=== PATIENT | female | born 1985 | race Two or more races ===

== ENCOUNTER → 2018-04-06 | Outpatient (CLI) | payer BC | END | disposition home or self-care (01) | LOC: LABWHC1 12:30 | PROVIDERS: ATTEND Obstetrics & Gynecology | DX: N92.6 Irregular menstruation, unspecified (principal) | CPT/HCPCS: 36415; 84702 ==

== ENCOUNTER → 2018-05-11 | Outpatient (CLI) | payer BC ==
[2018-05-11 12:56] LABS: HCT 38.7 % (34.0-46.0); HGB 13.2 gm/dL (11.4-16.0); MCH 30.9 pg (25.0-35.0); MCHC 34.1 g/dL (31.0-37.0); MCV 90.8 fL (80.0-100.0); Mean Platelet Volume 6.7; Platelet Count 246 k/uL (150-450); RBC 4.26 m/uL (3.80-5.40); RDW 13.1 % (11.5-15.5); WBC 9.5 k/uL (3.8-10.6)
[2018-05-11 21:12] LABS: HIV 1 AB Non-Reactive (Non-Reactive); HIV AB P24 Non-Reactive (Non-Reactive); HIV P24 AG Non-Reactive (Non-Reactive)
[2018-05-12 06:09] LABS: Toxoplasma Antibody (IgG) <3.0 IU/mL (<7.2); Toxoplasma Antibody (IgM) <3.0 AU/mL (<8.0)
== END | disposition home or self-care (01) ==
LOC: LABWHC1 12:25
PROVIDERS: ATTEND Obstetrics & Gynecology
DX: Z34.81 Encounter for supervision of other normal pregnancy, first trimester (principal)
CPT/HCPCS: 36415; 82565; 82947; 85027; 86762; 86777; 86778; 86780; 86850; 86900; 86901; 87340; 87390

== ENCOUNTER 2018-11-25 09:26 | Inpatient (IN) | payer BC ==
[2018-11-25] MEDS ORDERED: OXYTOCIN 30 UNITS/500 ML NS 30 UNIT in SALINE 1 500ML.BAG IV SCH (10:00)
[2018-11-25] MEDS: LACTATED RINGERS 1,000 ML IV SCH ×3 (10:20→17:29)
[2018-11-25] MEDS ORDERED: METHYLERGONOVINE 0.2 MG/ML 1 ML AMP IM PRN (11:33)
[2018-11-25] MEDS ORDERED: OXYTOCIN 10 UNIT/ML 1 ML VIAL IM PRN (11:33)
[2018-11-25] MEDS ORDERED: TERBUTALINE 1 MG/ML VIAL SQ PRN (11:33)
[2018-11-25] MEDS ORDERED: CARBOPROST TROMETHAMINE 250 MCG/ML 1 ML AMP IM PRN (11:33)
[2018-11-25] MEDS ORDERED: LIDOCAINE 0.5% (PF) 5 MG/ML (50 ML SDV) SQ PRN (11:33)
[2018-11-25] MEDS ORDERED: AMPICILLIN 2,000 MG in SODIUM CHLORIDE 0.9% 100 ML IVPB STA (11:42)
[2018-11-25 11:48] LABS: Basophils % (A) 0 %; Eosinophils # (A) 0.2 k/uL (0-0.7); Eosinophils % (A) 2 %; HCT 41.4 % (34.0-46.0); HGB 13.8 gm/dL (11.4-16.0); Lymphocytes # (A) 1.8 k/uL (1.0-4.8); Lymphocytes % (A) 17 %; MCH 29.5 pg (25.0-35.0); MCHC 33.2 g/dL (31.0-37.0); MCV 88.7 fL (80.0-100.0); Mean Platelet Volume 7.7; Monocytes # (A) 0.5 k/uL (0-1.0); Monocytes % (A) 5 %; Neutrophils % (A) 74 %; Platelet Count 266 k/uL (150-450); RBC 4.67 m/uL (3.80-5.40); RDW 15.2 % (11.5-15.5); WBC 10.8 k/uL (3.8-10.6)
[2018-11-25 11:56] VITALS: BMI 24.9
[2018-11-25] MEDS: AMPICILLIN 1,000 MG in SODIUM CHLORIDE 0.9% 50 ML IVPB SCH ×2 (15:52→20:15)
[2018-11-25] MEDS ORDERED: ROPIVACAINE 5MG/ML 20ML VIAL ONE (16:35)
[2018-11-25] MEDS ORDERED: SODIUM CHLORIDE 0.9% 100 ML BAG ONE (16:35)
[2018-11-25] MEDS ORDERED: fentaNYL (PF) 50 MCG/ML 5 ML AMP ONE (16:35)
[2018-11-25] MEDS ORDERED: WITCH HAZEL 1 EACH MED..PAD TOPICAL PRN (21:52)
[2018-11-25] MEDS ORDERED: diphenhydrAMINE 50 MG/ML 1 ML VIAL IVP PRN ×2 (21:52)
[2018-11-25] MEDS ORDERED: LANOLIN CREAM 5 GM TUBE TOPICAL PRN (21:52)
[2018-11-25] MEDS ORDERED: HYDROcodone/APAP 5-325MG 1 EACH TAB PO PRN (21:52)
[2018-11-25] MEDS ORDERED: diphenhydrAMINE 50 MG CAP PO PRN (21:52)
[2018-11-25] MEDS ORDERED: BENZOCAINE/MENTHOL SPRAY 1 GM/SPRAY AEROSOL TOPICAL PRN (21:52)
[2018-11-25] MEDS ORDERED: ACETAMINOPHEN TAB 325 MG TAB PO PRN (21:52)
[2018-11-25] MEDS ORDERED: SIMETHICONE 80 MG CHEWABLE PO PRN (21:52)
[2018-11-25] MEDS ORDERED: diphenhydrAMINE 25 MG CAP PO PRN (21:52)
[2018-11-25] MEDS ORDERED: ZOLPIDEM 5 MG TAB PO PRN (21:52)
[2018-11-25] MEDS ORDERED: HYDROCORTISONE 2.5% RECTAL CREAM 30 GM TUBE RECTAL PRN (21:52)
--- NOTE | 2018-11-25 21:55 | P.HPOB ---
History of Present Illness H&P Date: 11/25/18 Chief Complaint: Intrauterine at term: Spontaneous rupture membranes Iman is a 33 old at 38 weeks gestation who arrives complaining of spontaneous rupture membranes at approximately 2 AM. While she has a negative group B strep test she did have positive last and therefore we will start antibiotics especially in the face of her main once the near dilated and having did not in labor at has been 8 hours now. Pertinent labs O+ blood type Rh and it was negative and rubella was immune. Hepatitis surface antigen was nonreactive and RPR was nonreactive as was HIV. Her Precis course otherwise was unremarkable and she is feeling well at this time. She is currently dilated to 1-2 cm 80% effaced -3 station Degree 1 tracing is noted. Past Medical History Past Medical History: No Reported History History of Any Multi-Drug Resistant Organisms: None Reported Past Surgical History: No Surgical Hx Reported Additional Past Surgical History / Comment(s): Patient's had a ganglion cyst on the right hand removed and wisdom teeth extracted. Past Anesthesia/Blood Transfusion Reactions: No Reported Reaction Past Psychological History: No Psychological Hx Reported Smoking Status: Former smoker Past Alcohol Use History: None Reported Past Drug Use History: None Reported - Past Family History Father Family Medical History: Cancer, Diabetes Mellitus Additional Family Medical History / Comment(s): pancreatic cancer- demised Medications and Allergies Home Medications Medication Instructions Recorded Confirmed Type Pnv,Calcium 72/Iron/Folic Acid 1 tab PO DAILY 06/20/15 11/25/18 History [Pnv Plus Multivit Tab] Allergies Allergy/AdvReac Type Severity Reaction Status Date / Time No Known Allergies Allergy Verified 11/02/18 12:31 Exam Osteopathic Statement: *. No significant issues noted on an osteopathic structural exam other than those noted in the History and Physical/Consult. Vital Signs Temp Pulse Resp BP Pulse Ox 11/25/18 10:00 97.8 F 74 18 125/77 97 Intake and Output 11/25/18 11/25/18 11/25/18 06:59 14:59 22:59 Other: # Voids 1 Weight 76.204 kg - OBG Physical Exam Breast: both: normal (no masses) Abdomen: bowel sounds normal, no diffuse tenderness, no bruit present, no guarding noted, no hepatomegaly, no splenomegaly, no mass Vulva: both: normal Vagina: normal moisture, no discharge Cervix: no lesion, no discharge Uterus: normal size, normal contour Adnexa: both: normal Anus/Rectum: normal perianal skin, no rectal mass, no hemorrhoids, heme negative Results Result Diagrams: 11/25/18 10:20 Abnormal Lab Results - Last 24 Hours (Table) 11/25/18 Range/Units 10:20 WBC 10.8 H (3.8-10.6) k/uL Neutrophils # 8.0 H (1.3-7.7) k/uL
--- NOTE | 2018-11-25 21:56 | P.PROBDLV ---
Vaginal Delivery Note - . Vaginal Delivery Note: Patient progressed complete and pushed with spontaneous vaginal delivery of a viable female over secondary midline laceration and right labial laceration. Following delivery of the head a nuchal cord 1 was noted and baby was delivered through the nuchal cord with gentle downward upper traction followed by the delivery of the baby and mouth and nares being bulb suction. Baby was placed on mother's abdomen and umbilical cord was clamped cut and nursery personnel were able to immediately assume care. There were decelerations in the heart rate from baseline of 120s down to the 80s and 90s throughout the pushing process likely due to the nuchal cord. Baby's heart rate did return to baseline between contractions. O2 had been provided. Once baby was delivered placenta was then delivered intact and Pitocin was added to the IV. Secondary midline laceration was then repaired with 3-0 Vicryl in usual fashion following 1% Xylocaine for analgesia. Right labial laceration was also repaired with 3-0 Vicryl fine 1% Xylocaine for analgesia. scores were 8 and 9 at one and 5 minutes respectively and the weight was 8 lbs. 2 oz. Both mother and baby are currently stable following delivery.
[2018-11-25] MEDS ORDERED: OXYTOCIN 20 UNITS/1000 ML NS 1,000 ML IV SCH (22:00)
[2018-11-26] MEDS: IBUPROFEN 600 MG TAB PO PRN ×3 (04:22→19:26)
[2018-11-26] MEDS: SENNOSIDES-DOCUSATE SODIUM 1 EACH TAB PO SCH ×2 (09:00→19:27)
[2018-11-27] MEDS: IBUPROFEN 600 MG TAB PO PRN ×3 (05:39→19:42)
[2018-11-27] MEDS: SENNOSIDES-DOCUSATE SODIUM 1 EACH TAB PO SCH ×2 (08:00→22:45)
--- NOTE | 2018-11-27 10:10 | P.PNOBGVD ---
Subjective - Subjective Principal diagnosis: day 1 Interval history: Iman is seen and evaluated day 1. Overall she is doing well. Involuting, voiding and tolerating her diet. Due to prolonged rupture membranes we're keeping the baby for another 24 hours. All questions are answered for her and she is stable at this time. dictation was done late but she was seen day 1. Patient reports: Reports appetite normal, Reports voiding normally, Reports pain well controlled, Reports ambulating normally : doing well Objective - Latest Vital Signs Latest vital signs: Vital Signs Temp Pulse Resp BP 11/27/18 00:00 98.2 F 68 16 104/60 11/26/18 15:24 97.9 F 65 18 115/69
--- NOTE | 2018-11-27 10:11 | P.DS ---
Providers Date of admission: 11/25/18 10:19 Expected date of discharge: 11/27/18 Attending physician: Keith Gupta Primary care physician: Stated None Hospital Course: Iman is doing very well day 2. She is ambulating, voiding and tolerating her diet. She voices no complaints and is stable for discharge at this time. Her vital signs are stable and she is afebrile. Heart regular, lungs clear, extremities without pain. Abdomen soft and nontender. Positive bowel sounds are noted. Abdomen is soft uterus is firm and lochia is reported to be light. Assessment post day 2 plan discharged home. Follow-up with Dr. Ocampo in 6 weeks. Prescription for a breast pump and Motrin are provided. Discharge instructions again thoroughly reviewed and all questions were answered for her prior to her discharge. Patient Condition at Discharge: Good Plan - Discharge Summary New Discharge Prescriptions: New Ibuprofen [Motrin] 600 mg PO Q6HR PRN #30 tab PRN Reason: Pain No Action Pnv,Calcium 72/Iron/Folic Acid [Pnv Plus Multivit Tab] 1 tab PO DAILY Discharge Medication List Pnv,Calcium 72/Iron/Folic Acid [Pnv Plus Multivit Tab] 1 tab PO DAILY 06/20/15 [History] Ibuprofen [Motrin] 600 mg PO Q6HR PRN #30 tab 11/27/18 [Rx] Follow up Appointment(s)/Referral(s): Keith Gupta MD [STAFF PHYSICIAN] - 1 Week Activity/Diet/Wound Care/Special Instructions: No heavy lifting, limit stairs and driving, and pelvic rest. If any high temperatures, heavy bleeding, or severe pain call my office Discharge Disposition: HOME SELF-CARE
[2018-11-27 10:18] VITALS: RESP 18
[2018-11-27 18:13] VITALS: BP 114/63; PULSE 77; TEMP 97.8
== END 2018-11-27 20:45 | disposition home or self-care (01) | DRG 807 ==
LOC: FBPOP 09:26 → 4FBP 10:19
PROVIDERS: ADMIT Obstetrics & Gynecology; ATTEND Obstetrics & Gynecology
PROC: 10E0XZZ Delivery of Products of Conception, External Approach (ICD-10-PCS; principal; 2018-11-25)
PROC: 0HQ9XZZ Repair Perineum Skin, External Approach (ICD-10-PCS; 2018-11-25)
PROC: 00HU33Z Insertion of Infusion Device into Spinal Canal, Percutaneous Approach (ICD-10-PCS; 2018-11-25)
PROC: 3E0R3BZ Introduction of Anesthetic Agent into Spinal Canal, Percutaneous Approach (ICD-10-PCS; 2018-11-25)
DX: O42.92 Full-term premature rupture of membranes, unspecified as to length of time between rupture and onset of labor (principal); Z37.0 Single live birth; O69.81X0 Labor and delivery complicated by cord around neck, without compression, not applicable or unspecified; O76 Abnormality in fetal heart rate and rhythm complicating labor and delivery; O70.0 First degree perineal laceration during delivery; O90.1 Disruption of perineal obstetric wound; Z3A.38 38 weeks gestation of pregnancy; Z87.891 Personal history of nicotine dependence; Z83.3 Family history of diabetes mellitus; Z80.0 Family history of malignant neoplasm of digestive organs
CPT/HCPCS: 85025; 86850; 86900; 86901

== ENCOUNTER → 2021-10-07 | Outpatient (CLI) | payer BC ==
--- NOTE | 2021-10-07 18:35 | MR ---
EXAMINATION TYPE: MR lumbar spine wo con DATE OF EXAM: 10/07/2021 COMPARISON: None HISTORY: 36-year-old female lumbar pain, Low back pain that radiates into right buttock and down leg. TECHNIQUE: Multiplanar, multisequence images of the lumbar spine were acquired without IV contrast. FINDINGS: Vertebral body heights are preserved and alignment is maintained. Mild to moderate degenerative disc disease L4-L5 and L5-S1 with desiccated bulging discs. There is po sterior annular fissure at L5-S1. Additional mild ligamentum flavum thickening particularly L4-L5. Mild facet degenerative change lower lumbar spine. Conus medullaris is normal. There is some edematous Modic type I endplate change towards the right at L4-L5. No prevertebral paravertebral soft tissue body. At T12-L1, no spinal canal or foraminal stenosis. At L1-L2, no spinal canal or neuroforaminal stenosis. At L2-L3, no spinal canal or neuroforaminal stenosis. At L3-L4, no spinal canal or foraminal stenosis. At L4-L5, there is disc bulge eccentric towards the right. This abuts the traversing right L5 nerve r oot. There is mild circumferential narrowing of the spinal canal but no significant spinal canal sten osis. Along with mild facet degenerative change, changes result in mild right neuroforaminal stenosis . At L5-S1, diffuse disc bulge with posterior annular fissure and mild facet arthropathy. No significan t spinal canal stenosis. Minimal bilateral inferior foraminal narrowing on both sides. IMPRESSION: 1. Mild to moderate degenerative disc disease at L4-L5 and L5-S1 along with mild facet arthropathy. T here is associated posterior annular fissure at L5-S1. Also, associated edematous Modic type I endpla te change towards the right at L4-L5. 2. Disc bulge at L4-L5 is eccentric towards the right and encroaches onto the lateral recess abutting the traversing right L5 nerve root. Correlate for any corresponding radicular symptoms. Overall mild right neuroforaminal stenosis at this level. 3. No large focal disc herniation or significant spinal canal stenosis. 4. Minimal bilateral inferior neural foraminal narrowing on both sides at L5-S1.
== END | disposition home or self-care (01) ==
LOC: RADMRIMAIN 10:56
PROVIDERS: ATTEND Orthopaedic Surgery
DX: M51.27 Other intervertebral disc displacement, lumbosacral region (principal); M47.816 Spondylosis without myelopathy or radiculopathy, lumbar region; M99.73 Connective tissue and disc stenosis of intervertebral foramina of lumbar region; M48.061 Spinal stenosis, lumbar region without neurogenic claudication
CPT/HCPCS: 72148

== ENCOUNTER → 2021-12-01 | Outpatient (CLI) | payer BC ==
[2021-12-01 13:39] VITALS: BP 116/70; PULSE 67; RESP 18; TEMP 98.3
--- NOTE | 2021-12-01 15:07 | P.PAINPG ---
PQRS Measure Charge Sheet Comment: HISTORY OF PRESENT ILLNESS: 36 yr old female as a referral from [facility] for severe and chronic LBP secondary to for evaluation. States her pain level is 2/10 in intensity, localized in the R lower aspect of her lumbar spine x 1 year, w radiation of tingling to RLE. Pain escalates as high as 7/10 in intensity when provoked with walking/standing for periods of 20 min or more or w weight bearing activity. Pain is relieved with heat, ice, medications (Ibuprofen), topicals, PT for 5 weeks 3 mo ago, chiropractic treatments weekly w last visit last month, repositioning and rest. PMH: No Reported History PSH: R Hand Ganglion Cystectomy SH: Former tobacco user, No ETOH use, No illicit drug use. FH: Father- Pancreatic CA/ NIDDM. All: NKDA Meds: See list REVIEW OF ORGAN SYSTEMS: CONSTITUTIONAL: No fevers or chills. No recent weight loss. NEUROLOGICAL: + numbness and tingling along the distal extremities. No seizure disorders or headaches. MUSCULOSKELETAL: + pain PSYCHIATRIC: Denies current depression or suicidal thoughts. Physical Examinations : Constitutional : Cooperative , not in acute distress . Neurologic : Cranial nerve II to XII intact. No focal neurological deficits. Psychiatric : alert & oriented x 3. Matching mood & appropriate affect. Judgment & insight intact. Musculoskeletal : Cervical Spine Motor strength in the deltoid and biceps: Normal right side. Normal Left side Motor strength biceps and the wrist extensors: Normal right side . Normal left side Motor strength in the triceps muscle: Normal right side. Normal left side Deep tendon reflexes: Normal at the biceps. Normal at Brachioradialis. Normal at triceps Vertebral body tenderness to deep palpation over Cervical facet loading test: positive bilaterally Spurling test: positive bilaterally Neck distraction test: positive bilaterally Deneen sign: positive bilaterally Lumbar spine Motor strength lower extremities ,thigh and legs 5/5 Right side , 5/5 Left side Deep tendon reflexes : Normal Knee Jerk. Normal Ankle Jerk Vertebral body tenderness over L4 Lumbar facet Loading Test: positive Right / positive Left Range of motion of the lumbar spine Flexion 30 degrees, extension 10 degrees Straight Leg Raise test: Left/ Right positive at degree Mechelle test: positive right / positive left. Severe tenderness over the Sacroiliac joint on the Right / Left sides Gaenslen test: positive bilaterally Seated flexion test: positive bilaterally. Sacral spine : Severe tenderness over the Sacroiliac joint: right side / left side Range of motion: Flexion of the lumbar spine <60 degrees Range of motion: Extension of the lumbar spine <20 degrees Gaenslen's Test positive Timbo's Test positive Mechelle test: positive right side / left side Thigh Thrust Test Sacral Thrust Test Imaging: MRI without contrast of the lumbar spine from 10/07/21 reviewed Assessment/ Plan : Lumbar disc bulge Recommendation of LESI L4-L5. May need a series of injections, up to 3 within a 6 mo period, for optimal pain relief. Risks, benefits of procedure discussed and patient verbalized understanding. Denies aspirin or anti- coagulant use or medical history of diabetes. Protocol for discontinuation/ continuation of medications mary procedure discussed. All questions answered. I have spent greater than 30 minutes on patient care today. Dr Sena was available by phone for the evaluation of this patient. The time was used to review the medical records including relevant urine studies and Prescription history (MAPs), review of the available imaging, evaluation and examination of the patient, coordination of care with the medical staff and if applicable referring physicians, as well as creation of the medical record PQRS Narrative: Smoking Status Former smoker Home Medications: Ambulatory Orders Pnv,Calcium 72/Iron/Folic Acid [Pnv Plus Multivit Tab] 1 tab PO DAILY 06/20/15 Ibuprofen [Motrin] 600 mg PO Q6HR PRN #30 tab 11/27/18 Controlled Substance Measures - Controlled Substance Measures Is patient prescribed a controlled substance at discharge?: No
== END ==
LOC: PNWHC3 10:42
PROVIDERS: ATTEND Specialist
DX: M51.26 Other intervertebral disc displacement, lumbar region (principal); Z87.891 Personal history of nicotine dependence
CPT/HCPCS: 99211

== ENCOUNTER 2021-12-30 12:35 | Day surgery (SDC) | payer BC ==
[2021-12-30] MEDS ORDERED: LIDOCAINE 1% (10MG/ML) FOR IV START INTRADERMA PRN (12:52)
[2021-12-30] MEDS ORDERED: LACTATED RINGERS 1,000 ML IV SCH (12:52)
[2021-12-30 12:59] VITALS: TEMP 97.7
[2021-12-30] MEDS ORDERED: IOPAMIDOL M200 10 ML VIAL ONE (13:35)
[2021-12-30] MEDS ORDERED: methylPREDNISolone ACETATE 80 MG/ML 1 ML VIAL ONE (13:35)
--- NOTE | 2021-12-30 13:43 | P.PCN ---
Date of Procedure: 12/30/21 Procedure(s) Performed: PREOPERATIVE DIAGNOSIS: 1- Lumbar Degenerative Disc Diseases 2-Lumbar radiculopathy POSTOPERATIVE DIAGNOSIS: Same as preop diagnosis. PROCEDURE 1. Lumbar epidural steroid injection under fluoroscopic guidance at the L4-5 level. (Fluoroscopy imaging was available in radiology department) 2. Lumbar epidurogram. ANESTHESIA: Local anesthesia with lidocaine 1% 3 mL only EBL: Minimal PROCEDURE INDICATION: The patient with low back pain and radiculitis symptoms unresponsive to conservative treatment. Fluoroscopy was used to optimize visualization of the needle placement and to maximize safety. PROCEDURE DESCRIPTION / TECHNIQUE: The patient was seen and identified in the preoperative area. Risks, benefits, complications including but not limited to infections ,bleeding ,allergic reaction to the medications ,nerve damage and not complete pain releife , and alternatives were discussed with the patient. The patient agreed to proceed with the procedure and signed the consent , and vital signs were stable. Patient was taken to the OR and time out was completed. The patient was placed in the prone position on procedure table and a pillow was placed under the abdomen to reduce lumbar lordosis. The lumbosacral area was prepped and draped in the usual sterile fashion.ere closely monitored during the procedure. Vital signs was monitered during the entire procedure. Using anterior-posterior fluoroscopy, the L4-5 interlaminar space was identified and the skin over this site was marked and then infiltrated with 1% lidocaine subcutaneously. Subsequently, a 20-gauge Tuohy epidural needle was inserted and advanced toward the epidural space using the ``Loss of resistance technique and guided by AP and lateral fluoroscopy. The correct needle position in the epidural space was verified with the injection of 2 mL of the water soluble contrast dye Isovue 200 contrast and observing an excellent epidurogram with the epidural spread of the dye, after negative aspiration for blood and CSF and in the absence of paresthesias. Again after negative aspiration, a 6 ml mixture containing 80 mg of Depo-medrol , and 2 ml of preservative free Normal Saline, and 2 ml of preservative free lidocaine 1% solution was injected and a washout of epidurogram was seen. Needle was withdrawn intact, skin was cleansed, and bandages were applied. COMPLICATIONS: None DISPOSITION / PLANS: The patient was placed in a supine position and transferred to the recovery area in a stable condition for observation. There was no evidence of lower extremity motor or sensory deficit after the procedure. Patient was discharged from the recovery room after meeting discharge criteria. Home discharge instructions were given to the patient by the staff. The patient was reexamined prior to discharge. The patient will schedule a follow up in the clinic in 2-4 weeks.
[2021-12-30 13:52] VITALS: RESP 20
--- NOTE | 2021-12-30 13:54 | FL ---
Intraoperative/procedural fluoroscopic services were provided for lumbar epidural injection. Total fl uoroscopy time is 4 seconds with a total of 1 submitted image to PACS. Please see the operative note for further details.
[2021-12-30 14:06] VITALS: BP 122/72; PULSE 72
== END 2021-12-30 14:08 | disposition home or self-care (01) ==
LOC: ORPAIN 12:35
PROVIDERS: ATTEND Specialist
DX: M51.16 Intervertebral disc disorders with radiculopathy, lumbar region (principal)
CPT/HCPCS: 81025; 62323; J1040; Q9966

== ENCOUNTER 2022-04-02 12:56 | Day surgery (SDC) | payer BC ==
[2022-03-31 10:13] VITALS: BMI 20.5
[2022-04-02] MEDS ORDERED: LIDOCAINE 1% (10MG/ML) FOR IV START INTRADERMA PRN (13:11)
[2022-04-02] MEDS ORDERED: LACTATED RINGERS 1,000 ML IV SCH (13:11)
[2022-04-02 13:18] VITALS: RESP 18; TEMP 96.9
[2022-04-02] MEDS ORDERED: IOPAMIDOL M200 10 ML VIAL ONE (13:48)
[2022-04-02] MEDS ORDERED: methylPREDNISolone ACETATE 80 MG/ML 1 ML VIAL ONE (13:48)
--- NOTE | 2022-04-02 14:03 | P.PCN ---
Date of Procedure: 04/02/22 Procedure(s) Performed: PREOPERATIVE DIAGNOSIS: 1- Lumbar Degenerative Disc Diseases 2-Lumbar radiculopathy POSTOPERATIVE DIAGNOSIS: Same as preop diagnosis. PROCEDURE 1. Lumbar epidural steroid injection under fluoroscopic guidance at the L4-5 level. (Fluoroscopy imaging was available in radiology department) 2. Lumbar epidurogram. ANESTHESIA: Local anesthesia with lidocaine 1% 3 mL only EBL: Minimal PROCEDURE INDICATION: The patient with low back pain and radiculitis symptoms unresponsive to conservative treatment. Fluoroscopy was used to optimize visualization of the needle placement and to maximize safety. PROCEDURE DESCRIPTION / TECHNIQUE: The patient was seen and identified in the preoperative area. Risks, benefits, complications including but not limited to infections ,bleeding ,allergic reaction to the medications ,nerve damage and not complete pain releife , and alternatives were discussed with the patient. The patient agreed to proceed with the procedure and signed the consent , and vital signs were stable. Patient was taken to the OR and time out was completed. The patient was placed in the prone position on procedure table and a pillow was placed under the abdomen to reduce lumbar lordosis. The lumbosacral area was prepped and draped in the usual sterile fashion.ere closely monitored during the procedure. Vital signs was monitered during the entire procedure. Using anterior-posterior fluoroscopy, the L4-5 interlaminar space was identified and the skin over this site was marked and then infiltrated with 1% lidocaine subcutaneously. Subsequently, a 20-gauge Tuohy epidural needle was inserted and advanced toward the epidural space using the ``Loss of resistance technique and guided by AP and lateral fluoroscopy. The correct needle position in the epidural space was verified with the injection of 2 mL of the water soluble contrast dye Isovue 200 contrast and observing an excellent epidurogram with the epidural spread of the dye, after negative aspiration for blood and CSF and in the absence of paresthesias. Again after negative aspiration, a 6 ml mixture containing 80 mg of Depo-medrol , and 2 ml of preservative free Normal Saline, and 2 ml of preservative free lidocaine 1% solution was injected and a washout of epidurogram was seen. Needle was withdrawn intact, skin was cleansed, and bandages were applied. COMPLICATIONS: None DISPOSITION / PLANS: The patient was placed in a supine position and transferred to the recovery area in a stable condition for observation. There was no evidence of lower extremity motor or sensory deficit after the procedure. Patient was discharged from the recovery room after meeting discharge criteria. Home discharge instructions were given to the patient by the staff. The patient was reexamined prior to discharge. The patient will schedule a follow up in the clinic in 2-4 weeks.
[2022-04-02] MEDS ORDERED: IV FLUID CONTINUATION 1,000 ML IV ONE (14:05)
[2022-04-02 14:11] VITALS: BP 149/78; PULSE 63
--- NOTE | 2022-04-02 16:47 | FL ---
EXAMINATION TYPE: FL guided pain mgmt statistic DATE OF EXAM: 04/02/2022 FLUOROSCOPY Fluoroscopy time of 4 seconds was used during lumbar epidural steroid injection. 1 image/s document/ s the procedure.
== END 2022-04-02 14:20 | disposition home or self-care (01) ==
LOC: ORPAIN 12:56
PROVIDERS: ATTEND Specialist
DX: M51.16 Intervertebral disc disorders with radiculopathy, lumbar region (principal)
CPT/HCPCS: 81025; 62323; J1040; Q9966

== ENCOUNTER → 2022-06-04 | Outpatient (CLI) | payer BC ==
[2022-06-04 09:10] VITALS: BP 120/82; PULSE 84; RESP 18; TEMP 97.9
--- NOTE | 2022-06-04 14:58 | P.PAINPG ---
PQRS Measure Charge Sheet Comment: A 37 yr old male with a history of severe and chronic LBP x 2 yrs (due to a volleyball accident, possibly) secondary to lumbar DDD and spondylosis with facet arthropathy without myelopathy presents today for evaluation s/p R paramedial YUNIOR L4-L5. Pt states she experienced 0 % pain relief x 2 mo s/p procedure. Pain level is provoked at 8/10 in intensity, constant, localized in the R lumbar spine, throbbing, achy in character w tightness towards the R calf. Pain is provoked by staying in 1 position (sitting, standing, laying) for periods of 30 min or more. Pain is alleviated with PT x 5 wks in 2021, chiropractic treatments as needed, meds (Flexeril, Naproxen), topicals, repositoning and rest. Interventional pain procedures completed include YUNIOR L4-L5 x2 Patient is currently on Flexeril, Naproxen Patient denies any side effects of the medication(s), denies excessive drowsiness or sleepiness, denies suicidal ideation and reports that the current pain medication is helping to control the pain and improve activities of daily living. Patient denies any motor or sensory deficits. Patient denies any fever or night sweats, denies any change in the bowel movements or urination. Physical Examination: -Constitutional: Cooperative. Not in acute distress . - Neurologic: Cranial nerve II to XII intact. No focal neurological deficits. - Psychatric: Alert & oriented x 3. Matching mood & appropriate affect. Judgment and insight intact. - Musculoskeletal: Cervical spine: Muscle bulk/ tone/ strength in the bilateral upper extremities normal Vertebral body tenderness to palpation over Spurling test positive Distraction test positive Facet loading test positive Thoracic spine Muscle bulk / tone/ strength in the bilateral paraspinal muscles normal Vertebral body tender to palpation over Facet loading test positive Lumbar spine: Motor bulk/ tone/ strength lower extremities , thigh and legs : 5/5 Deep tendon reflexes : Normal Knee Jerk. Normal Ankle Jerk . Vertebral body tenderness to palpation over Lumbar Facet Loading Test positive L4 Straight Leg Raise: positive at 30 degrees right side/ left side Gaenslen's Test positive Sacral spine : Severe tenderness over the Sacroiliac joint: right side / left side Range of motion: Flexion of the lumbar spine <60 degrees Range of motion: Extension of the lumbar spine <20 degrees Gaenslen's Test positive Mechelle test: positive right side / left side Thigh Thrust Test Sacral Thrust Test Assessment and plan: Chronic LBP secondary to lumbar DDD, spondylosis with facet arthropathy without myelopathy Recommendation of R TFESI L4-L5. May need a series of injections, up to 4 within a 12 mo period, for optimal pain relief. Risks, benefits of procedure discussed and pt verbalized understanding. Admits anticoagulant use or medical history of diabetes. Protocol for discontinuation/ continuation of medications mary procedure discussed. [place] 5/325mg #18 NR. Use, side effects and adverse reactions discussed. Safe storage discussed and patient verbalized understanding. All patient questions answered I have spent less than 30 minutes on patient care today. Dr Sena was available by phone for the evaluation of this patient. The time was used to review the medical records including relevant urine studies and Prescription history (MAPs), review of the available imaging, evaluation and examination of the patient, coordination of care with the medical staff and if applicable referring physicians, as well as creation of the medical record - Pain Location Bilateral Lower Back Non-Pharmacological Interventions: Chiropractic Treatment, Heat, Ice, Position/R eposition Pharmacological Interventions: Epidural, PRN Medication, Topical Medication PQRS Narrative: Smoking Status Former smoker Hx Alcohol Use (MH) Yes: 2-3 EVERY 3 DAYS Home Medications: Ambulatory Orders norethindrone-e.estradioL-iron [Fawn Fe 1.5-30 Tablet] 1 tab PO DAILY 12/30/21 Controlled Substance Measures - Controlled Substance Measures Is patient prescribed a controlled substance at discharge?: Yes When asked, does pt state using other controlled substances?: No If prescribed controlled substance>3 days was MAPS reviewed?: Prescribed <3 Days If Rx opioid, was Start Talking consent form obtained?: Yes If opioid is for acute pain is fill amount 7 days or less?: Yes Was information provided regarding opioid addiction?: Yes
== END ==
LOC: PNWHC3 08:39
PROVIDERS: ATTEND Specialist
DX: M47.816 Spondylosis without myelopathy or radiculopathy, lumbar region (principal); M51.36 Other intervertebral disc degeneration, lumbar region; G89.29 Other chronic pain; Z87.891 Personal history of nicotine dependence
CPT/HCPCS: 99211

== ENCOUNTER 2022-07-14 09:20 | Day surgery (SDC) | payer BC ==
[2022-07-08 11:20] VITALS: BMI 19.8
[2022-07-14 09:49] VITALS: TEMP 97.7
[2022-07-14] MEDS ORDERED: IOPAMIDOL M200 10 ML VIAL ONE (10:17)
[2022-07-14] MEDS ORDERED: methylPREDNISolone ACETATE 80 MG/ML 1 ML VIAL ONE (10:17)
--- NOTE | 2022-07-14 10:29 | P.PCN ---
Date of Procedure: 07/14/22 Procedure(s) Performed: PREOPERATIVE DIAGNOSIS: 1-Lumbar radiculopathy . 2-lumbar degenerative disc disease. 3-lumbar spondylosis with lumbar facet arthropathy POSTOPERATIVE DIAGNOSIS: Same as preoperative diagnoses. PROCEDURE 1. Transforaminal epidural steroid injection under fluoroscopic guidance at right L4-5 level. (Fluoroscopy images stored on file in the radiology Department ) 2. Lumbar epidurogram . ANESTHESIA: Local with 1% lidocaine 3 ml only . EBL: Minimal PROCEDURE INDICATION: The patient with low back pain and radiculopathy symptoms unresponsive to conservative treatment. PROCEDURE DESCRIPTION / TECHNIQUE: The patient was seen and identified in the preoperative area. Risks, benefits, complications, and alternatives were discussed with the patient. The patient agreed to proceed with the procedure and signed the consent. IV was started, and vital signs were stable. Patient was taken to the OR and time out was completed. The patient was placed in the prone position on procedure table and a pillow was placed under the abdomen to reduce lumbar lordosis. The lumbosacral area was prepped and draped in the usual sterile fashion. Critical pause was taken. Vital signs were closely monitored during the procedure. Using oblique fluoroscopy, the chin of the `MelKarel dog at Right L4-5 level was identified, and the skin and deeper tissues just below was localized with 1% lidocaine. Subsequently, a 22-gauge 3.5-inch spinal needle was advanced under a tunneled view fluoroscopic guidance just underneath the chin of the `Davontey dog at the right L4-5 Under lateral fluoroscopy, the needle was then advanced to the posterior border of the interforaminal space. After negative aspiration of CSF and blood and with no paresthesias, 1 mL Isovue 200 contrast dye was injected excellent epidurogram and outlining of the nerve root Subsequently, 3 mL of block solution containing 80 mg Depo-Medrol and 2 mL of 0.9% normal saline PF was injected. Needle was removed . At the end of the procedure, skin was cleansed, and bandages were applied. COMPLICATIONS:none DISPOSITION / PLANS: The patient was placed in a supine position and transferred to the recovery area in a stable condition for observation. There was no evidence of lower extremity motor or sensory deficit after the procedure. Patient was discharged from the recovery room after meeting discharge criteria. Home discharge instructions were given to the patient by the staff. The patient was reexamined prior to discharge.
--- NOTE | 2022-07-14 10:39 | FL ---
Intraoperative/procedural fluoroscopic services were provided for right transforaminal epidural injec tion. Total fluoroscopy time is 6 seconds with a total of 1 submitted image to PACS. Total DAP 0.0058 1. Please see the operative note for further details.
[2022-07-14 10:56] VITALS: BP 106/72; PULSE 74; RESP 16
== END 2022-07-14 10:56 | disposition home or self-care (01) ==
LOC: ORPAIN 09:20
PROVIDERS: ATTEND Specialist
DX: M51.16 Intervertebral disc disorders with radiculopathy, lumbar region (principal); M47.26 Other spondylosis with radiculopathy, lumbar region; Z88.0 Allergy status to penicillin
CPT/HCPCS: 81025; 64483; J1040; Q9966

== ENCOUNTER → 2022-08-05 | Outpatient (CLI) | payer BC ==
--- NOTE | 2022-08-05 10:30 | P.PN ---
Subjective Progress Note Date: 08/05/22 This is a 37-year-old lady with history of chronic lower back pain with radiation to the right leg down to the right ankle with occasional numbness and tingling in the right leg. The patient had transforaminal epidural steroid injection at the L4 5 level or 3 weeks ago which gave her good pain relief however the improvement has been getting worse over time. The most intense pain is in the right lower back area around her sacroiliac joint. The patient works at [employer] and she is on her feet for long intervals. Patient denies new-onset weakness, bowel/bladder incontinence, or any other signs or symptoms of cauda equina syndrome. There are no signs of acute intoxication, and no indications of medication diversion or overuse. In addition to above, 13-point review of systems is also negative for chest pain, shortness of breath, changes in vision, changes in hearing, new onset weak ness, abdominal pain, diarrhea, extreme fatigue, malaise, fever, skin changes, homicidal or suicidal ideation, or bowel or bladder incontinence. Vital Signs: Reviewed in EMR Gen: AAOx3, NAD HEENT: PERRLA,hearing grossly normal Pulm: resp unlabored Neck: supple, trachea midline Neuro exam of the lower extremities: Normal muscle strength and deep tendon reflexes Straight leg raising test: Mildly positive on the right side Timbo's test: Negative on the right side Range of motion of the lumbar spine: Facet loading test: Tenderness in the paravertebral musculature: + Significant tenderness around the right sacroiliac joint Neuro: CN II-XII grossly intact, Imaging: Reviewed in EMR/chart Assessment: Right lumbar radiculopathy Right sacroiliitis Number spondylosis without myelopathy Plan: 1. Explanation: When patients on opioids, opioid and psychological risk scores were reviewed. Diagnoses, prognoses, and multiple treatment options including but not limited to physical therapy, interventional therapies, adjuvant medical therapies, narcotic medication therapies, and surgery were discussed with the patient and all questions were answered to the patient's satisfaction. 2. Opioid agreement:When patients are prescribed opoids through our clinic, opioid agreement is signed with the patient and the patient is warned not to use opioids while driving or before driving and not to combine opioids with benzodiazepines or alcohol. 3. Counseling: When patient is smoking or obese, the patient was counseled extensively on SMOKING CESSATION, BODY MASS INDEX, EXERCISE. Specifically, the patient was instructed regarding the importance of smoking cessation, obesity, and exercise in the context of both chronic pain and overall health. 4. Procedures: None for now 5. Consultations: None 6. Investigations: None 7. Medications: None prescribed 8. Disposition: The patient will try physical therapy and we'll see her on an as-needed basis. 9. Maps were reviewed and were appropriate. PQRS measures: 1-Patient's medications are documented in the chart. 2-Tobacco use is negative, counseling given 3-Patient has had a pneumococcal vaccine. 4-Advanced care planning discussed, patient unable to give 5-Opioid contract signed with the patient. 6-Pain positive, follow-up visit or procedure scheduled 7-Patient's blood pressure measured and documented . The patient will follow up with his primary care physician. 8-Patient's weight was measured. Patient instructed to follow up with PCP. 9-Patient WAS NOT identified as an unhealthy alcohol user.
[2022-08-05 10:45] VITALS: BP 122/73; PULSE 72; RESP 18; TEMP 98.3
== END ==
LOC: PNWHC3 09:04
PROVIDERS: ATTEND Anesthesiology
DX: M47.26 Other spondylosis with radiculopathy, lumbar region (principal); M46.1 Sacroiliitis, not elsewhere classified; Z87.891 Personal history of nicotine dependence
CPT/HCPCS: 99211

== ENCOUNTER 2022-09-09 10:59 | Emergency (ER) | payer BC ==
[2022-09-09 11:05] VITALS: BP 123/76; PULSE 83; RESP 16; TEMP 97.4
[2022-09-09] MEDS ORDERED: DEXAMETHASONE SOD PHOSPHATE 10 MG/ML 1 ML VIAL IM STA (11:24)
[2022-09-09] MEDS ORDERED: MORPHINE SULFATE 4 MG/ML SYRINGE IM STA (11:25)
--- NOTE | 2022-09-09 11:31 | ED ---
Back Pain HPI - General Chief Complaint: Back Pain/Injury Stated Complaint: Back issues/pain Time Seen by Provider: 09/09/22 11:13 Source: patient, RN notes reviewed, old records reviewed Limitations: no limitations - History of Present Illness Initial Comments: This is a nontoxic-appearing 37-year-old female presenting with complaints of low back pain for the past 2 days. Patient states she got up and felt a pop in her lower back, low right side. States that she has pain on the right side that goes down her right leg. She does have history of chronic back pain and this is similar pain. Has seen pain management and had epidural injections which only provided relief for a couple of months. She has also seen Dr. Sandoval in the past. Denies any bowel or bladder incontinence. No fevers. No trauma. Was hoping to have a repeat MRI states her last one was over a year ago. MD Complaint: back pain -: days(s) (2) Similar Symptoms Previously: Yes Severity scale (1-10): 10 Consistency: constant Improves With: none Worsens With: walking Associated Symptoms: denies other symptoms - Related Data Home Medications Medication Instructions Recorded Confirmed Cyclobenzaprine [Flexeril] 10 mg PO HS 07/08/22 07/14/22 Gabapentin [Neurontin] 300 mg PO TID 07/08/22 07/14/22 Naproxen [Naprosyn] 500 mg PO DAILY 07/08/22 07/14/22 Previous Rx's Medication Instructions Recorded Lidocaine 5% Patch [Lidoderm] 1 patch TOPICAL DAILY 14 Days #14 09/09/22 patch Allergies Allergy/AdvReac Type Severity Reaction Status Date / Time No Known Allergies Allergy Verified 09/09/22 11:05 Review of Systems ROS Statement: Those systems with pertinent positive or pertinent negative responses have been documented in the HPI. ROS Other: All systems not noted in ROS Statement are negative. Past Medical History Past Medical History: No Reported History Additional Past Medical History / Comment(s): BACK PAIN History of Any Multi-Drug Resistant Organisms: None Reported Past Surgical History: No Surgical Hx Reported Additional Past Surgical History / Comment(s): Patient's had a ganglion cyst on the right hand removed and wisdom teeth extracted. PAIN CLINIC PROCEDURES Past Anesthesia/Blood Transfusion Reactions: No Reported Reaction Past Psychological History: No Psychological Hx Reported Smoking Status: Current every day smoker Past Alcohol Use History: Occasional Past Drug Use History: None Reported - Past Family History Father Family Medical History: Cancer, Diabetes Mellitus Additional Family Medical History / Comment(s): pancreatic cancer- demised General Exam Limitations: no limitations General appearance: alert, in no apparent distress Head exam: Present: atraumatic Eye exam: Present: normal appearance. Absent: scleral icterus, conjunctival injection, periorbital swelling Neck exam: Present: full ROM. Absent: tenderness, meningismus Respiratory exam: Absent: respiratory distress, accessory muscle use Cardiovascular Exam: Present: regular rate Back exam: Present: normal inspection, paraspinal tenderness (right lumbar). Absent: CVA tenderness (R), CVA tenderness (L), muscle spasm, vertebral tenderness Expanded Back exam: Absent: saddle anesthesia Neurological exam: Present: alert, oriented X3 Psychiatric exam: Present: normal affect, normal mood Skin exam: Present: warm, dry, normal color. Absent: cyanosis, diaphoretic, petechiae, pallor Course Vital Signs 09/09/22 11:03 Temperature 97.4 F L Pulse Rate 83 Respiratory 16 Rate Blood Pressure 123/76 O2 Sat by Pulse 99 Oximetry Medical Decision Making - Medical Decision Making Patient had MRI of her spine without contrast on 10/07/2021. Showed mild to moderate degenerative disc disease L4-L5 and L5-S1 with mild facet arthropathy. Disc bulge at L4-L5 eccentric towards the right and encroaches into the lateral recess abutting the transverse right L5 nerve root. No large focal disc herniation. Minimal bilateral inferior neural foraminal narrowing both sides at L5-S1. On exam patient is ambulatory with no bowel or bladder incontinence. No saddle anesthesia. No fevers. Denies any trauma. Ambulatory with steady gait. States this is pain similar in the past. In the past she has had epidural injections with last one July 14 of this year. According to Dr. Sena's notes at that time it was recommended that patient received epidural injections every 4 months for the next year to monitor for improvement. I explained to the patient that I am unable to give her an MRI at this time. She has had no new changes in her pain. No trauma. No concerning red flag symptoms. Patient requested a computed tomography scan and I explained that an MRI would be better for her at this time. She was given a shot of Decadron for her radicular symptoms down her right leg. She was offered morphine and declined. She was given a prescription for Lidoderm patches. Directed to follow up with Dr. Sandoval as she has seen him in the past for continuation of care. Case discussed with Dr. Tariq Was pt. sent in by a medical professional or institution ([facility] Fernández, INSPECTOR P[employer]AGER, urgent care, hospital, or fci...) When possible be specific @ -No Did you speak to anyone other than the patient for history (EMS, parent, family, police, friend...)? What history was obtained from this source @ -No Did you review nursing and triage notes (agree or disagree)? Why? @ -I reviewed and agree with nursing and triage notes Were old charts reviewed (outside hosp., previous admission, EMS record, old EKG, old radiological studies, urgent care reports/EKG's, fci records)? Report findings @ -Yes previous MRI as above, pain management notes and plan. Differential Diagnosis (chest pain, altered mental status, abdominal pain women, abdominal pain men, vaginal bleeding, weakness, fever, dyspnea, syncope, headache, dizziness, GI bleed, back pain, seizure, CVA, palpatations, mental health, musculoskeletal)? @ -Differential Back Pain: Strain, zoster, cauda equina syndrome, epidural abscess, vertebral osteomyelitis, discitis, fracture, subluxation, disc herniation, DJD, spinal stenosis, dissection, AAA, pancreatitis, peptic ulcer disease, pyelonephritis, kidney stone, this is not meant to be an all-inclusive list. EKG interpreted by me (3pts min.). @ -n/a X-rays interpreted by me (1pt min.). @ -None done CT interpreted by me (1pt min.). @ -None done U/S interpreted by me (1pt. min.). @ -None done What testing was considered but not performed or refused? (CT, X-rays, U/S, labs)? Why? @ -X-rays were considered however patient denies any new trauma. States is chronic back pain. What meds were considered but not given or refused? Why? @ -Morphine was offered and declined. Did you discuss the management of the patient with other professionals (professionals i.e. , [facility], INSPECTOR PACKAGER, lab, RT, psych nurse, social human services assistants, flask fitter, teacher, property officer, upper caser)? Give summary @ -No Was smoking cessation discussed for >3mins.? @ -No Was critical care preformed (if so, how long)? @ -No Were there social determinants of health that impacted care today? How? (Homelessness, low income, unemployed, alcoholism, drug addiction, transportation, low edu. Level, literacy, decrease access to med. care, shelter, rehab)? @ -No Was there de-escalation of care discussed even if they declined (Discuss DNR or withdrawal of care, Hospice)? DNR status @ -No What co-morbidities impacted this encounter? (DM, HTN, Smoking, COPD, CAD, Cancer, CVA, ARF, Chemo, Hep., AIDS, mental health diagnosis, sleep apnea, morbid obesity)? @ -None Was patient admitted / discharged? Hospital course, mention meds given and route, prescriptions, significant lab abnormalities, going to OR and other pertinent info. @ -Discharged Undiagnosed new problem with uncertain prognosis? @ -No Drug Therapy requiring intensive monitoring for toxicity (Heparin, Nitro, Insulin, Cardizem)? @ -No Were any procedures done? @ -No Diagnosis/symptom? @ -Chronic back pain Acute, or Chronic, or Acute on Chronic? @ -Acute on chronic Uncomplicated (without systemic symptoms) or Complicated (systemic symptoms)? @ -Uncomplicated Side effects of treatment? @ -No Exacerbation, Progression, or Severe Exacerbation? @ -No Poses a threat to life or bodily function? How? (Chest pain, [place], [place], pneumonia, PE, COPD, DKA, ARF, appy, cholecystitis, CVA, Diverticulitis, Homicidal, Suicidal, threat to staff... and all critical care pts) @ -No Disposition Clinical Impression: Back pain Disposition: HOME SELF-CARE Condition: Good Instructions (If sedation given, give patient instructions): Chronic Back Pain (DC), Lower Back Exercises (ED) Additional Instructions: Please follow-up with your primary care doctor, pain management doctor and Dr. Sandoval for your chronic back pain. Prescriptions: Lidocaine 5% Patch [Lidoderm] 1 patch TOPICAL DAILY 14 Days #14 patch Is patient prescribed a controlled substance at d/c from ED?: No Referrals: Azul Patel, NPC [Family Provider] - 1-2 days Parul Sena MD [STAFF PHYSICIAN] - 1-2 days John Sandoval DO [Doctor of Osteopathic Medicine] - 1-2 days Time of Disposition: 11:55
[2022-09-09] MEDS ORDERED: LIDOCAINE 5% PATCH TOPICAL SCH (11:45)
== END 2022-09-09 12:13 | disposition home or self-care (01) ==
LOC: EC 10:59
DX: M54.50 Low back pain, unspecified (principal); F17.200 Nicotine dependence, unspecified, uncomplicated
CPT/HCPCS: 99284; 96372; J1100

== ENCOUNTER → 2022-09-24 | Outpatient (CLI) | payer BC ==
--- NOTE | 2022-09-24 16:35 | MR ---
EXAMINATION TYPE: MR lumbar spine wo con DATE OF EXAM: 09/24/2022 COMPARISON: MRI lumbar spine October 07, 2021 HISTORY: Low back pain that radiates down right leg for at least 2 years. Intervertebral disc disorde r with radiculopathy and disc degeneration TECHNIQUE: Multiplanar, multisequence imaging of the lumbar spine is performed without IV contrast. FINDINGS: Persistent dextroconvex scoliosis centered near the thoracolumbar junction. Sagittal images of the lumbar spine show vertebral body heights and alignment to remain satisfactory. There is disc desiccation and mild disc space narrowing at L4-L5 and L5-S1 levels redemonstrated. The conus medull amado remains normal in position and signal ending mid L1 level. The bone marrow signal intensity is within normal limits. Axial images show T12-L1 through the L2-L3 levels to appear within normal limits. Axial images at the L3-L4 level shows mild broad-based disc protrusion minimally effacing the anterio r thecal sac. Patent bilateral neural foramina. No significant change from prior. Axial images at L4-L5 level shows broad-based right paracentral disc protrusion on axial image 9 whic h appears more prominent from prior study measuring 17 mm transversely by 4 mm AP diameter with mild facet arthropathy bilaterally. There is effacement of the right lateral recess and central right L5 n erve. Bilateral neural foramina are patent. Axial images at the L5-S1 level shows mild to moderate facet arthropathy bilaterally. There is tiny c entral disc protrusion but spinal canal is preserved and bilateral neural foramina are patent. No suspicious retroperitoneal findings. IMPRESSION: Degenerative change in the mid to lower lumbar spine as detailed above. Most significant level is L4-L5 level where even more prominent disc herniation effaces the central right L5 nerve acc ounting for patient's right-sided radiculopathy type symptoms.
== END | disposition home or self-care (01) ==
LOC: RADMRIMAIN 15:29
PROVIDERS: ATTEND Neurological Surgery
DX: M51.16 Intervertebral disc disorders with radiculopathy, lumbar region (principal); M47.26 Other spondylosis with radiculopathy, lumbar region
CPT/HCPCS: 72148